=== PATIENT | female | born 1995 | race Two or more races ===

== ENCOUNTER 2018-02-09 15:07 | Emergency (ER) | payer OTHER ==
[~2018-02-09] VITALS: Ht 157.5 cm; Wt 48.5 kg
[~2018-02-09 15:07] MED LIST: ALLEGRA ALLERG180 MG PO; AMOXICILLIN500 MG PO; CHILDREN'S CLARI5 MG; FLONASE16 GM NS; GILTUSS TR TAB1 EACH PO; ZITHROMAX TRI-500 MG PO
== END 2018-02-09 20:16 | disposition home or self-care (01) ==
LOC: ER 15:07
DX: J03.80 Acute tonsillitis due to other specified organisms (principal)

== ENCOUNTER 2018-02-10 13:35 | Emergency (ER) | payer OTHER ==
[~2018-02-10] VITALS: Ht 170.2 cm; Wt 48.5 kg
== END 2018-02-10 14:57 | disposition home or self-care (01) ==
LOC: ER 13:35
DX: T50.995A Adverse effect of other drugs, medicaments and biological substances, initial encounter (principal); Y92.89 Other specified places as the place of occurrence of the external cause